=== PATIENT | female | born 1960 | race Caucasian/White ===

== ENCOUNTER 2016-04-23 08:09 | Inpatient (IN) | payer OTHER, MEDICAID ==
[~2016-04-23] VITALS: Ht 162.6 cm; Wt 100.0 kg
[2016-04-23] VITALS (36 sets, daily range): BP systolic 100–166; BP diastolic 60–116
[2016-04-23] MEDS ORDERED: NALOXONE HCL 0.4 MG/ML VIAL ONE (08:20)
[2016-04-23] MEDS ORDERED: NALOXONE HCL 0.4 MG/ML VIAL IV ONE (08:30)
[2016-04-23] MEDS ORDERED: ETOMIDATE (2MG/ML) 20ML VIAL IV ONE (08:41)
[2016-04-23] MEDS ORDERED: MIDAZOLAM DRIP 100 mg/100mL NS 100 ML IV ONE (08:42)
[2016-04-23] MEDS ORDERED: SUCCINYLCHOLINE CHLORIDE 20 MG/ML 10ML VIAL IV ONE (08:42)
[2016-04-23] MEDS ORDERED: SODIUM CHLORIDE 0.9% 3,000 ML IV ONE (08:45)
[2016-04-23] MEDS ORDERED: MIDAZOLAM DRIP 100 mg/100mL NS 100 ML IV SCH ×2 (08:50→10:30)
[2016-04-23] MEDS ORDERED: PROPOFOL 100 ML IV ONE (09:08)
[2016-04-23 09:27] LABS: Basophils # (auto) 0 uL; Basophils % (auto) 0.4 % (0.0-2.0); Eosinophils # (auto) 0.1 uL; Eosinophils % (auto) 0.9 % (0.0-7.0); Hematocrit 39.9 % (36.0-46.0); Hemoglobin 12.8 g/dL (12.2-16.2); Lymphocytes # (auto) 4.2 uL; Lymphocytes % (auto) 36.9 % (10.0-50.0); Mean Corpuscular Hemoglobin 28.8 pg (28.0-32.0); Mean Platelet Volume 8.8 fL (7.4-10.4); Monocytes % (auto) 8.6 % (0.0-12.0); Neutrophils % (auto) 53.2 % (37.0-80.0); Platelet Count (auto) 261 10^3/uL (140-450); Red Cell Distribution Width 14.9 % (11.6-16.0); White Blood Cell 11.3 10^3/uL (4.4-10.8)
[2016-04-23] MEDS ORDERED: PROPOFOL 100 ML IV SCH (09:30)
[2016-04-23] MEDS ORDERED: NOREPINEPHRINE BITARTRATE 250 ML IV ONE (09:40)
[2016-04-23 09:55] LABS: Alkaline Phosphatase 85 U/L (45-117); Anion Gap 10 (5-15); Aspartate Aminotransferase 11 U/L (15-37); BUN/Creatinine Ratio 16.3; Bilirubin, Total 0.3 mg/dL (0.2-1.0); Blood Urea Nitrogen 41 mg/dL (7-18); Calcium 10.6 mg/dL (8.5-10.1); Carbon Dioxide 26 mmol/L (21-32); Chloride 110 mmol/L (98-107); GFR African American 26 mL/min; GFR Non-African American 21 mL/min; Glucose 128 mg/dL (74-106); Magnesium 2.9 mg/dL (1.6-2.6); Potassium 4.4 mmol/L (3.5-5.1); Sodium 146 mmol/L (136-145); Total Protein 7.8 g/dL (6.4-8.2)
[2016-04-23] MEDS ORDERED: SODIUM CHLORIDE 0.9% 1,000 ML IV ONE (10:00)
[2016-04-23] MEDS ORDERED: NOREPINEPHRINE BITARTRATE 250 ML IV SCH (10:30)
[2016-04-23] MEDS ORDERED: PIPERACILLIN-TAZOB 3.375GM 100 ML IV ONE (11:15)
[2016-04-23] MEDS ORDERED: CLINDAMYCIN 600MG IV 50 ML IV ONE (11:15)
[2016-04-23] MEDS: MIDAZOLAM DRIP 100 mg/100mL NS 100 ML IV SCH ×2 (12:18→18:11)
[2016-04-23] MEDS: PROPOFOL 100 ML IV SCH ×2 (12:18→18:12)
[2016-04-23] MEDS: NOREPINEPHRINE BITARTRATE 250 ML IV SCH (12:30)
[2016-04-23] MEDS ORDERED: fentaNYL 75MCG/HR 75 MCG/HR PAT TD SCH (12:45)
[2016-04-23] MEDS ORDERED: LORazepam 2MG/ML-1ML VIAL IV PRN (12:45)
[2016-04-23] MEDS: SODIUM CHLORIDE 0.9% 1,000 ML IV SCH ×2 (12:46→21:06)
[2016-04-23] MEDS ORDERED: NITROGLYCERIN 0.4 MG SL TAB SL PRN (13:00)
[2016-04-23] MEDS ORDERED: ONDANSETRON HCL 4 MG/2 ML VIAL IV PRN (13:00)
[2016-04-23] MEDS: CLINDAMYCIN 300MG IV 50 ML IV SCH ×2 (14:00→22:12)
[2016-04-23 15:29] LABS: Urine Bilirubin Negative (Negative); Urine Blood Negative /uL (Negative); Urine Color Yellow (Yellow); Urine Glucose Normal (Normal); Urine Hyaline Cast MOD /lpf (0 - 2); Urine Ketone Negative (Negative); Urine Mucus FEW (None Seen); Urine Nitrite Negative (Negative); Urine RBC 2 /hpf (0 - 4); Urine Squamous Epithelial Cell MANY /hpf (<5); Urine Urobilinogen Normal (Negative)
[2016-04-23] MEDS ORDERED: FUROSEMIDE 20 MG/2 ML VIAL IV ONE ×2 (15:45→17:00)
[2016-04-23] MEDS: PIPERACILLIN-TAZOB 2.25GM 50 ML IV SCH (17:29)
[2016-04-23] MEDS: methylPREDNISolone SOD SUCC 40 MG/ML VL IV SCH (17:29)
[2016-04-23] MEDS ORDERED: PHE100C PO ×2 (18:32→18:47)
[2016-04-23] MEDS ORDERED: LISI40TA PO (18:36)
[2016-04-23] MEDS ORDERED: MET50T PO (18:36)
[2016-04-23] MEDS ORDERED: GAB300C PO (18:36)
[2016-04-23] MEDS ORDERED: CARV25TA55 PO (18:36)
[2016-04-23] MEDS ORDERED: HYDR-2652 PO (18:36)
[2016-04-23] MEDS ORDERED: FURO40TA4 PO (18:36)
[2016-04-23] MEDS ORDERED: ISOS20TA49 PO (18:36)
[2016-04-23] MEDS ORDERED: PRE5T PO (18:37)
[2016-04-23] MEDS ORDERED: ASPI81CH43 PO (18:38)
[2016-04-23] MEDS ORDERED: NIF10C PO (18:38)
[2016-04-23] MEDS ORDERED: PYRI1TAB PO (18:38)
[2016-04-23] MEDS ORDERED: BACL10TA PO (18:46)
[2016-04-23] MEDS ORDERED: FENT100D11 TD (18:46)
[2016-04-23] MEDS ORDERED: POTA10TA79 PO (18:46)
[2016-04-23] MEDS ORDERED: FAMOTIDINE (10MG/ML) 2ML VL IV SCH (22:00)
[2016-04-24] VITALS (101 sets, daily range): BP systolic 82–181; BP diastolic 50–115
[2016-04-24] MEDS: methylPREDNISolone SOD SUCC 40 MG/ML VL IV SCH ×5 (00:11→23:32)
[2016-04-24] MEDS: PIPERACILLIN-TAZOB 2.25GM 50 ML IV SCH ×5 (00:11→23:32)
[2016-04-24] MEDS: PROPOFOL 100 ML IV SCH ×3 (00:19→08:50)
[2016-04-24] MEDS: MIDAZOLAM DRIP 100 mg/100mL NS 100 ML IV SCH ×3 (00:19→16:04)
[2016-04-24 03:47] LABS: Basophils # (auto) 0 uL; Basophils % (auto) 0.3 % (0.0-2.0); Eosinophils # (auto) 0 uL; Eosinophils % (auto) 0.1 % (0.0-7.0); Hematocrit 38.2 % (36.0-46.0); Hemoglobin 12.9 g/dL (12.2-16.2); Lymphocytes # (auto) 1.3 uL; Lymphocytes % (auto) 12.5 % (10.0-50.0); Mean Corpuscular Hgb Conc. 33.8 g/dL (32.0-36.0); Mean Corpuscular Volume 88.6 fL (80.0-100.0); Mean Platelet Volume 9.1 fL (7.4-10.4); Monocytes # (auto) 0.5 uL; Monocytes % (auto) 4.4 % (0.0-12.0); Neutrophils # (auto) 8.6 uL; Neutrophils % (auto) 82.7 % (37.0-80.0); Platelet Count (auto) 206 10^3/uL (140-450); Red Cell Distribution Width 14.9 % (11.6-16.0); White Blood Cell 10.4 10^3/uL (4.4-10.8)
[2016-04-24 04:12] LABS: Albumin 3.5 g/dL (3.4-5.0); BUN/Creatinine Ratio 18.8; Calcium 8.6 mg/dL (8.5-10.1)
[2016-04-24 04:14] LABS: Bilirubin, Total 0.3 mg/dL (0.2-1.0); Total Protein 7.2 g/dL (6.4-8.2)
[2016-04-24] MEDS: CLINDAMYCIN 300MG IV 50 ML IV SCH ×3 (05:29→21:31)
[2016-04-24] MEDS: SODIUM CHLORIDE 0.9% 1,000 ML IV SCH ×3 (06:54→22:06)
[2016-04-24] MEDS ORDERED: FAMOTIDINE (10MG/ML) 2ML VL IV SCH (10:00)
[2016-04-24] MEDS ORDERED: PHENYTOIN SODIUM 50 MG/ML 2ML VIAL IV ONE (10:45)
[2016-04-24] MEDS ORDERED: SODIUM CHLORIDE 0.9% 500 ML IV ONE (11:00)
[2016-04-24] MEDS: fentaNYL Drip 2500mCg/250mlNS 250 ML IV SCH (11:23)
[2016-04-24] MEDS: PYRIDOSTIGMINE BROMIDE 60 MG TAB PO SCH ×3 (12:00→21:32)
[2016-04-24] MEDS: NOREPINEPHRINE BITARTRATE 250 ML IV SCH (12:30)
[2016-04-24] MEDS: PHENYTOIN SODIUM 50 MG/ML 2ML VIAL IV SCH (21:31)
[2016-04-25] VITALS (106 sets, daily range): BP systolic 85–169; BP diastolic 49–114
[2016-04-25] MEDS: MIDAZOLAM DRIP 100 mg/100mL NS 100 ML IV SCH ×4 (01:03→22:02)
[2016-04-25] MEDS: PROPOFOL 100 ML IV SCH (03:01)
[2016-04-25 03:57] LABS: Basophils # (auto) 0 uL; Basophils % (auto) 0.2 % (0.0-2.0); Eosinophils # (auto) 0 uL; Hematocrit 34.8 % (36.0-46.0); Hemoglobin 11.9 g/dL (12.2-16.2); Lymphocytes # (auto) 0.7 uL; Lymphocytes % (auto) 9.7 % (10.0-50.0); Mean Corpuscular Hemoglobin 30.3 pg (28.0-32.0); Mean Corpuscular Hgb Conc. 34.2 g/dL (32.0-36.0); Mean Corpuscular Volume 88.8 fL (80.0-100.0); Monocytes # (auto) 0.3 uL; Monocytes % (auto) 3.9 % (0.0-12.0); Neutrophils % (auto) 86.2 % (37.0-80.0); Platelet Count (auto) 176 10^3/uL (140-450); Red Cell Distribution Width 14.3 % (11.6-16.0); White Blood Cell 6.9 10^3/uL (4.4-10.8)
[2016-04-25 04:15] LABS: INR 1.13 (0.9-1.15); Partial Thromboplastin Time 25.6 sec (22.64-33.71); Prothrombin Time 11.6 sec (9.37-12.3)
[2016-04-25 04:35] LABS: Albumin 2.8 g/dL (3.4-5.0); BUN/Creatinine Ratio 24.3; Bilirubin, Total 0.3 mg/dL (0.2-1.0); Calcium 8.2 mg/dL (8.5-10.1); Magnesium 1.9 mg/dL (1.6-2.6); Potassium 3.7 mmol/L (3.5-5.1); Total Protein 6.2 g/dL (6.4-8.2)
[2016-04-25] MEDS: CLINDAMYCIN 300MG IV 50 ML IV SCH ×3 (05:45→22:00)
[2016-04-25] MEDS: PIPERACILLIN-TAZOB 2.25GM 50 ML IV SCH ×3 (05:46→18:50)
[2016-04-25] MEDS: methylPREDNISolone SOD SUCC 40 MG/ML VL IV SCH ×3 (05:46→18:50)
[2016-04-25] MEDS: PYRIDOSTIGMINE BROMIDE 60 MG TAB PO SCH ×4 (05:46→22:00)
[2016-04-25] MEDS: SODIUM CHLORIDE 0.9% 1,000 ML IV SCH (06:26)
[2016-04-25] MEDS ORDERED: DEXTROSE (50%) 50ML SYRG IV PRN (09:30)
[2016-04-25] MEDS: FAMOTIDINE (10MG/ML) 2ML VL IV SCH ×2 (09:53→22:01)
[2016-04-25] MEDS: PHENYTOIN SODIUM 50 MG/ML 2ML VIAL IV SCH ×2 (09:53→22:00)
[2016-04-25] MEDS: D5W/SOD CHL 0.45% 1,000 ML IV SCH ×2 (09:54→18:45)
[2016-04-25] MEDS ORDERED: ENOXAPARIN SOD 40 MG/0.4 ML SYRINGE SC SCH (10:00)
[2016-04-25] MEDS: InsuLIN REG 1unit/0.01ml Soln (100units/ml) SC SCH ×2 (11:30→19:02)
[2016-04-25] MEDS ORDERED: Diabetisource AC 1 Liter GT SCH (11:30)
[2016-04-25] MEDS: ACCU-CHEK COMFORT CURVE STRIP VI SCH ×2 (11:30→18:50)
[2016-04-25] MEDS: fentaNYL Drip 2500mCg/250mlNS 250 ML IV SCH (11:49)
[2016-04-25] MEDS: NOREPINEPHRINE BITARTRATE 250 ML IV SCH (12:30)
[2016-04-25] MEDS ORDERED: hydrALAZINE HCL 20 MG/ML VL IV PRN (18:15)
[2016-04-25] MEDS ORDERED: CARVEDILOL 12.5 MG TAB PO SCH (22:00)
[2016-04-25] MEDS: ISOSORBIDE MONONITRATE 60 MG TAB PO SCH (22:00)
[2016-04-25] MEDS: IPRATROPIUM BROM 0.5 MG/2.5ML INH SOL NEB SCH (23:56)
[2016-04-26] VITALS (104 sets, daily range): BP systolic 77–176; BP diastolic 39–118
[2016-04-26] MEDS: ACCU-CHEK COMFORT CURVE STRIP VI SCH ×5 (00:01→23:54)
[2016-04-26] MEDS: InsuLIN REG 1unit/0.01ml Soln (100units/ml) SC SCH ×5 (00:05→23:56)
[2016-04-26 03:47] LABS: Basophils # (auto) 0 uL; Basophils % (auto) 0.4 % (0.0-2.0); Eosinophils # (auto) 0 uL; Eosinophils % (auto) 0.1 % (0.0-7.0); Hematocrit 34.1 % (36.0-46.0); Hemoglobin 11.4 g/dL (12.2-16.2); Lymphocytes # (auto) 1.9 uL; Lymphocytes % (auto) 24.5 % (10.0-50.0); Mean Corpuscular Hemoglobin 29.6 pg (28.0-32.0); Mean Corpuscular Hgb Conc. 33.3 g/dL (32.0-36.0); Mean Corpuscular Volume 89.1 fL (80.0-100.0); Mean Platelet Volume 8.7 fL (7.4-10.4); Monocytes # (auto) 0.6 uL; Monocytes % (auto) 7.8 % (0.0-12.0); Neutrophils # (auto) 5.2 uL; Neutrophils % (auto) 67.2 % (37.0-80.0); Platelet Count (auto) 189 10^3/uL (140-450); Red Cell Distribution Width 14.3 % (11.6-16.0); White Blood Cell 7.7 10^3/uL (4.4-10.8)
[2016-04-26 04:09] LABS: BUN/Creatinine Ratio 26.5; Calcium 7.9 mg/dL (8.5-10.1); Magnesium 2.2 mg/dL (1.6-2.6); Potassium 3.8 mmol/L (3.5-5.1)
[2016-04-26] MEDS: methylPREDNISolone SOD SUCC 40 MG/ML VL IV SCH ×3 (05:37→21:32)
[2016-04-26] MEDS: CLINDAMYCIN 300MG IV 50 ML IV SCH ×3 (05:38→21:33)
[2016-04-26] MEDS: PYRIDOSTIGMINE BROMIDE 60 MG TAB PO SCH ×4 (05:38→22:00)
[2016-04-26] MEDS: PIPERACILLIN-TAZOB 2.25GM 50 ML IV SCH ×5 (05:38→23:53)
[2016-04-26] MEDS: IPRATROPIUM BROM 0.5 MG/2.5ML INH SOL NEB SCH ×3 (06:02→18:55)
[2016-04-26] MEDS: ALBUTEROL SULF 2.5 MG/0.5ML(0.5%) NEB SOLN NEB PRN ×3 (06:02→18:55)
[2016-04-26] MEDS: D5W/SOD CHL 0.45% 1,000 ML IV SCH ×2 (06:40→14:45)
[2016-04-26] MEDS: fentaNYL Drip 2500mCg/250mlNS 250 ML IV SCH (06:41)
[2016-04-26] MEDS ORDERED: POTASSIUM CHL 10% (20 MEQ/15ML) ORAL SOLN GT ONE (06:45)
[2016-04-26] MEDS: MIDAZOLAM DRIP 100 mg/100mL NS 100 ML IV SCH ×2 (08:34→16:21)
[2016-04-26] MEDS ORDERED: NIFEdipine 10 MG CAP PO SCH (10:00)
[2016-04-26] MEDS: PHENYTOIN SODIUM 50 MG/ML 2ML VIAL IV SCH ×2 (10:07→21:33)
[2016-04-26] MEDS: FAMOTIDINE (10MG/ML) 2ML VL IV SCH ×2 (10:07→21:33)
[2016-04-26] MEDS: PROPOFOL 100 ML IV SCH (12:13)
[2016-04-26] MEDS: NOREPINEPHRINE BITARTRATE 250 ML IV SCH (12:13)
[2016-04-26] MEDS: ISOSORBIDE MONONITRATE 60 MG TAB PO SCH (22:00)
[2016-04-27] VITALS (14 sets, daily range): BP systolic 90–129; BP diastolic 47–86
[2016-04-27] MEDS: MIDAZOLAM DRIP 100 mg/100mL NS 100 ML IV SCH (00:11)
[2016-04-27] MEDS: fentaNYL Drip 2500mCg/250mlNS 250 ML IV SCH (00:12)
[2016-04-27] MEDS: IPRATROPIUM BROM 0.5 MG/2.5ML INH SOL NEB SCH (00:41)
[2016-04-27] MEDS: D5W/SOD CHL 0.45% 1,000 ML IV SCH (00:45)
== END 2016-04-27 03:35 | disposition short-term general hospital (02) | DRG 208 ==
LOC: EDUNIT# 08:09 → ER 08:12 → TELE 08:13 → ICU WEST 17:41
PROVIDERS: ADMIT Internal Medicine; ATTEND Internal Medicine Geriatric Medicine
PROC: 5A1945Z Respiratory Ventilation, 24-96 Consecutive Hours (ICD-10-PCS; principal; 2016-04-23)
PROC: 0BH18EZ Insertion of Endotracheal Airway into Trachea, Via Natural or Artificial Opening Endoscopic (ICD-10-PCS; 2016-04-23)
DX: J69.0 Pneumonitis due to inhalation of food and vomit (principal); J96.00 Acute respiratory failure, unspecified whether with hypoxia or hypercapnia; G92 Toxic encephalopathy; N18.4 Chronic kidney disease, stage 4 (severe); E87.0 Hyperosmolality and hypernatremia; N17.9 Acute kidney failure, unspecified; J44.0 Chronic obstructive pulmonary disease with (acute) lower respiratory infection; I12.9 Hypertensive chronic kidney disease with stage 1 through stage 4 chronic kidney disease, or unspecified chronic kidney disease; J44.9 Chronic obstructive pulmonary disease, unspecified; E83.52 Hypercalcemia; E83.41 Hypermagnesemia; E78.5 Hyperlipidemia, unspecified; G70.00 Myasthenia gravis without (acute) exacerbation; G40.909 Epilepsy, unspecified, not intractable, without status epilepticus; G89.4 Chronic pain syndrome; Z86.73 Personal history of transient ischemic attack (TIA), and cerebral infarction without residual deficits; I25.10 Atherosclerotic heart disease of native coronary artery without angina pectoris; E66.9 Obesity, unspecified; E11.22 Type 2 diabetes mellitus with diabetic chronic kidney disease; E86.0 Dehydration; I67.2 Cerebral atherosclerosis; Z96.659 Presence of unspecified artificial knee joint; Z79.52 Long term (current) use of systemic steroids; Z83.3 Family history of diabetes mellitus; Z82.49 Family history of ischemic heart disease and other diseases of the circulatory system; Z95.1 Presence of aortocoronary bypass graft; Z88.8 Allergy status to other drugs, medicaments and biological substances; Z88.5 Allergy status to narcotic agent; Z79.82 Long term (current) use of aspirin; Z79.899 Other long term (current) drug therapy
CPT/HCPCS: 31500; 36415; 36600; 70450; 71010; 80048; 80053; 80185; 81001; 82140; 82607; 82805; 82962; 83036; 83605; 83735; 84443; 84484; 85025; 85610; 85730; 87040; 87070; 87081; 87086; 87205; 93005; 93306; 94002; 94003; 94640; 95819; 96365; 96366; 96367; 96375; G0434; J0330; J1815; J2543; J2704; J3010; J3490

== ENCOUNTER 2017-07-22 16:42 | Inpatient (IN) | payer OTHER, MEDICAID ==
[~2017-07-22] VITALS: Ht 160 cm; Wt 114.0 kg
[~2017-07-22 16:42] MED LIST: ASPI81CH43 PO; BACL10TA PO; CARV25TA55 PO; FENT100D11 TD; FURO40TA4 PO; GABA300C11 PO; HYDR50TA15 PO; ISOS20TA49 PO; LISI40TA PO; MET50T PO; NIF10C PO; PHE100C PO; POTA10TA79 PO; PRE5T PO; PYRI1TAB PO
[2017-07-22] MEDS ORDERED: ASPirin 81 mg TAB PO ONE ×2 (17:00→17:15)
[2017-07-22] MEDS ORDERED: SODIUM CHLORIDE 0.9% 1,000 ML IV ONE (17:00)
[2017-07-22] MEDS ORDERED: NOREPINEPHRINE 8 MG/250ML KIT 250 ML IV ONE (17:08)
[2017-07-22] MEDS ORDERED: PYRI60TA3 PO (17:09)
[2017-07-22] MEDS: NOREPINEPHRINE 8 MG/250ML KIT 250 ML IV SCH ×2 (17:13→22:16)
[2017-07-22] MEDS ORDERED: ALBUAER3 IN (17:14)
[2017-07-22] MEDS ORDERED: PRE1T PO (17:14)
[2017-07-22] MEDS ORDERED: ASPI-231 PO (17:14)
[2017-07-22] MEDS ORDERED: PRAV20TA3 PO (17:14)
[2017-07-22] MEDS ORDERED: NAP500T PO (17:14)
[2017-07-22] MEDS ORDERED: NIFE90TA25 PO (17:14)
[2017-07-22] MEDS ORDERED: FURO80TA PO (17:14)
[2017-07-22] MEDS ORDERED: PHE100C PO (17:14)
[2017-07-22 18:08] LABS: Basophils # (auto) 0 uL; Basophils % (auto) 0.3 % (0.0-2.0); Eosinophils # (auto) 0.3 uL; Eosinophils % (auto) 2.6 % (0.0-7.0); Hematocrit 38.8 % (36.0-46.0); Hemoglobin 13.6 g/dL (12.2-16.2); Lymphocytes # (auto) 2.4 uL; Lymphocytes % (auto) 23.6 % (10.0-50.0); Mean Corpuscular Hemoglobin 31.6 pg (28.0-32.0); Mean Corpuscular Volume 90.3 fL (80.0-100.0); Monocytes # (auto) 1.6 uL; Monocytes % (auto) 15.6 % (0.0-12.0); Neutrophils # (auto) 5.9 uL; Neutrophils % (auto) 57.9 % (37.0-80.0); Nucleated Red Blood Cells % 0.2 %; Platelet Count (auto) 199 10^3/uL (140-450); Red Cell Distribution Width 14.1 % (11.8-14.3); White Blood Cell 10.2 10^3/uL (4.4-10.8)
[2017-07-22 18:19] LABS: INR 1.01 (0.9-1.15); Partial Thromboplastin Time 23.1 sec (23.78-33.04); Prothrombin Time 10.8 sec (9.27-12.13)
[2017-07-22 18:33] LABS: Alanine Aminotransferase 21 U/L (13-56); Albumin 3.8 g/dL (3.4-5.0); Alkaline Phosphatase 70 U/L (45-117); Anion Gap 10 (5-15); Aspartate Aminotransferase 21 U/L (15-37); BUN/Creatinine Ratio 23.6; Bilirubin, Total 0.4 mg/dL (0.2-1.0); Blood Urea Nitrogen 48 mg/dL (7-18); Calcium 8.5 mg/dL (8.5-10.1); Carbon Dioxide 27 mmol/L (21-32); Chloride 94 mmol/L (98-107); GFR African American 33 mL/min; GFR Non-African American 27 mL/min; Glucose 142 mg/dL (74-106); Potassium 3.2 mmol/L (3.5-5.1); Sodium 131 mmol/L (136-145); Total Protein 9.6 g/dL (6.4-8.2)
[2017-07-22] MEDS ORDERED: HYDROcodone-ACET 10/325MG TAB PO ONE (20:45)
[2017-07-22] MEDS ORDERED: KETOROLAC TROMETH 30 MG/ML 1ML VIAL IV ONE (21:30)
[2017-07-22] MEDS ORDERED: HYDROcodone-ACET 5/325MG TAB PO PRN (22:15)
[2017-07-22] MEDS ORDERED: POTASSIUM CHL 20 Meq TABLET PO ONE (22:15)
[2017-07-22] MEDS ORDERED: ACETAMINOPHEN 500 MG TAB PO PRN (22:15)
[2017-07-22] MEDS ORDERED: LORazepam 2MG/ML-1ML VIAL IV PRN (22:15)
[2017-07-22] MEDS ORDERED: NITROGLYCERIN 0.4 MG SL TAB SL PRN (22:15)
[2017-07-22] MEDS ORDERED: MORPHINE SULFATE 4 MG/ML SYR/VIAL IV PRN ×2 (22:15)
[2017-07-22 23:45] VITALS: BP 110/54
[2017-07-22 23:48] VITALS: BP 103/49
[2017-07-23] VITALS (54 sets, daily range): BP systolic 74–123; BP diastolic 28–70
[2017-07-23] MEDS ORDERED: SODIUM CHLORIDE 0.9% 1,000 ML IV ONE (02:00)
[2017-07-23] MEDS ORDERED: DOPamine 1600MCG/ML D5W 250 ML IV ONE (02:27)
[2017-07-23] MEDS: DOPamine 1600MCG/ML D5W 250 ML IV SCH ×2 (02:37→14:05)
[2017-07-23] MEDS ORDERED: LISI-646 PO (02:56)
[2017-07-23 04:17] LABS: Hematocrit 38.4 % (36.0-46.0); Hemoglobin 13.7 g/dL (12.2-16.2); Mean Corpuscular Hgb Conc. 35.7 g/dL (32.0-36.0); Mean Corpuscular Volume 89.7 fL (80.0-100.0); Platelet Count (auto) 184 10^3/uL (140-450); Red Blood Cells 4.28 10^6/uL (4.0-5.20); Red Cell Distribution Width 14.4 % (11.8-14.3); White Blood Cell 8.1 10^3/uL (4.4-10.8)
[2017-07-23 04:33] LABS: BUN/Creatinine Ratio 22.6; Basophils % (manual) 0 (0.0-2.0); Blast Cells 0; Calcium 8.8 mg/dL (8.5-10.1); Metamyelocytes % 0; Myelocytes % 0; Promyelocytes % 0; Reactive Lymphocytes 0
[2017-07-23 04:50] LABS: Potassium 2.9 mmol/L (3.5-5.1)
[2017-07-23 05:10] LABS: Band Neutrophils % (manual) 1; Eosinophils % (manual) 1 (0-7); Lymphocytes % (manual) 37 (10.0-50.0); Monocytes % (manual) 9 (0-12)
[2017-07-23] MEDS: POTASSIUM CHL 20MEQ/100ML 100 ML IV SCH ×2 (06:38→06:39)
[2017-07-23] MEDS: ONDANSETRON HCL 4 MG/2 ML VIAL IV PRN ×2 (06:38→11:10)
[2017-07-23] MEDS ORDERED: PHENYTOIN SODIUM 100 MG CAP PO SCH (10:00)
[2017-07-23] MEDS ORDERED: predniSONE 5 MG TAB PO SCH (10:00)
[2017-07-23] MEDS ORDERED: ASPirin-EC 81 mg tab PO SCH (10:00)
[2017-07-23] MEDS ORDERED: SODIUM CHLORIDE 0.9% 1,000 ML IV SCH (10:15)
[2017-07-23] MEDS: NOREPINEPHRINE 8 MG/250ML KIT 250 ML IV SCH (10:54)
[2017-07-23 11:59] LABS: Urine WBC None Seen /hpf (0 - 5)
[2017-07-23 12:12] LABS: Urine Bacteria FEW /hpf (None Seen); Urine Blood Negative /uL (Negative); Urine Mucus FEW (None Seen); Urine Specific Gravity 1.008 (1.001-1.035)
[2017-07-23] MEDS ORDERED: POTASSIUM CHL 20 Meq TABLET PO ONE (14:00)
[2017-07-24 18:13] LABS: Protein, Urine 27.6 mg/dL (0.0-11.9)
== END 2017-07-23 18:03 | disposition short-term general hospital (02) | DRG 314 ==
LOC: EDBD 16:42 → ER 16:43 → TELE 16:44 → ICU WEST 23:15
PROVIDERS: ADMIT Nurse Practitioner Family; ATTEND Family Medicine
DX: I95.9 Hypotension, unspecified (principal); N17.0 Acute kidney failure with tubular necrosis; E87.1 Hypo-osmolality and hyponatremia; I11.0 Hypertensive heart disease with heart failure; I50.9 Heart failure, unspecified; R56.9 Unspecified convulsions; R55 Syncope and collapse; R00.1 Bradycardia, unspecified; E11.9 Type 2 diabetes mellitus without complications; Z96.651 Presence of right artificial knee joint; E78.5 Hyperlipidemia, unspecified; E87.6 Hypokalemia; I25.10 Atherosclerotic heart disease of native coronary artery without angina pectoris; Z79.82 Long term (current) use of aspirin; Z79.899 Other long term (current) drug therapy; Z86.74 Personal history of sudden cardiac arrest; Z95.1 Presence of aortocoronary bypass graft
CPT/HCPCS: 36415; 70450; 71045; 76775; 80048; 80053; 81001; 82306; 82570; 83036; 83735; 83880; 83970; 84156; 84300; 84443; 84484; 85007; 85025; 85027; 85610; 85730; 87040; 87081; 93005; 93886; 96361; 96374; 96375; J1885; J2405; J3480

== ENCOUNTER 2018-12-14 04:42 | Emergency (ER) | payer OTHER, MEDICAID ==
[~2018-12-14] VITALS: Ht 170.2 cm; Wt 129.3 kg
[~2018-12-14 04:42] MED LIST changes: +ALBUAER3 IN; +ASPI-231 PO; -ASPI81CH43 PO; -BACL10TA PO; -CARV25TA55 PO; -FENT100D11 TD; +FURO1TAB32 PO; -FURO40TA4 PO; +LISI-646 PO; -MET50T PO; +NAP500T PO; -NIF10C PO; +NIFE90TA25 PO; +PRAV20TA3 PO; +PRE1T PO; -PYRI1TAB PO; +PYRI60TA3 PO
[2018-12-14] MEDS ORDERED: SODIUM CHLORIDE 0.9% 1,000 ML IV ONE (05:15)
[2018-12-14 06:51] LABS: Basophils # (auto) 0 uL; Basophils % (auto) 0.1 % (0.0-2.0); Monocytes # (auto) 1.5 uL; Nucleated Red Blood Cells % 0.1 %; Red Cell Distribution Width 17.9 % (11.8-14.3); White Blood Cell 12.2 10^3/uL (4.4-10.8)
[2018-12-14 06:56] LABS: Eosinophils # (auto) 0.2 uL; Eosinophils % (auto) 1.8 % (0.0-7.0); Hemoglobin 10.4 g/dL (12.2-16.2); Lymphocytes # (auto) 1.7 uL; Lymphocytes % (auto) 14.2 % (10.0-50.0); Mean Corpuscular Hgb Conc. 31.6 g/dL (32.0-36.0); Mean Corpuscular Volume 75.9 fL (80.0-100.0); Monocytes % (auto) 12.2 % (0.0-12.0); Neutrophils # (auto) 8.8 uL; Neutrophils % (auto) 71.7 % (37.0-80.0); Platelet Count (auto) 242 10^3/uL (140-450); Red Blood Cells 4.35 10^6/uL (4.0-5.20)
[2018-12-14 07:06] LABS: Potassium 4.4 mmol/L (3.5-5.1)
[2018-12-14 07:15] LABS: Albumin 3.8 g/dL (3.4-5.0); BUN/Creatinine Ratio 12.6; Bilirubin, Total 0.4 mg/dL (0.2-1.0); Calcium 9.1 mg/dL (8.5-10.1); Magnesium 2.4 mg/dL (1.6-2.6); Total Protein 7.7 g/dL (6.4-8.2)
[2018-12-14] MEDS ORDERED: ONDANSETRON HCL 4 MG/2 ML VIAL IV ONE ×2 (07:45→09:15)
[2018-12-14] MEDS ORDERED: ENOXAPARIN SOD 80 MG/0.8ML SYRINGE SC ONE (10:30)
[2018-12-14] MEDS ORDERED: IBUPROFEN 800 MG TAB PO ONE (10:30)
[2018-12-14] MEDS: DOPamine 1600MCG/ML D5W 250 ML IV ONE ×2 (10:53→11:34)
[2018-12-14 12:43] LABS: INR 0.97 (0.9-1.15); Partial Thromboplastin Time 30.5 sec (23.64-32.05)
[2018-12-14 13:36] LABS: Urine Bacteria FEW /hpf (None Seen); Urine Blood 2+ /uL (Negative); Urine Hyaline Cast FEW /lpf (0 - 2); Urine Mucus FEW (None Seen); Urine Specific Gravity 1.023 (1.001-1.035); Urine WBC 3 /hpf (0 - 5)
[2018-12-14] MEDS ORDERED: ACETAMINOPHEN 500 MG TAB PO ONE (16:15)
[2018-12-14 19:24] VITALS: BP 93/60
[2018-12-14] MEDS ORDERED: DOPamine 1600MCG/ML D5W 250 ML IV ONE (19:28)
== END 2018-12-14 19:54 | disposition short-term general hospital (02) ==
LOC: ER 04:42 → EDBD 04:42 → ER 19:54
DX: R07.89 Other chest pain (principal); N39.0 Urinary tract infection, site not specified; R79.1 Abnormal coagulation profile; I25.10 Atherosclerotic heart disease of native coronary artery without angina pectoris; D64.9 Anemia, unspecified; G40.909 Epilepsy, unspecified, not intractable, without status epilepticus; I13.0 Hypertensive heart and chronic kidney disease with heart failure and stage 1 through stage 4 chronic kidney disease, or unspecified chronic kidney disease; E11.22 Type 2 diabetes mellitus with diabetic chronic kidney disease; N18.9 Chronic kidney disease, unspecified; I50.9 Heart failure, unspecified; E78.5 Hyperlipidemia, unspecified; Z79.899 Other long term (current) drug therapy; Z88.8 Allergy status to other drugs, medicaments and biological substances; Z95.0 Presence of cardiac pacemaker
CPT/HCPCS: 36415; 51702; 70450; 71045; 80053; 81001; 83735; 83880; 84443; 84484; 85025; 85379; 85610; 85730; 93005; 94761; 96365; 96372; 96375; 96376; 99291; J1265; J1650; J2405